=== PATIENT | female | born 1990 | race Caucasian/White ===

== ENCOUNTER → 2016-09-30 | Outpatient (CLI) | payer BC ==
[2016-09-30 10:31] LABS: CH 29.4; CHCM 33.2; HCT 38.9 % (34.0-46.0); HDW 2.37; HGB 12.7 gm/dL (11.4-16.0); MCH 29.1 pg (25.0-35.0); MCHC 32.7 g/dL (31.0-37.0); MCV 88.9 fL (80.0-100.0); Mean Platelet Volume 6.4; RBC 4.37 m/uL (3.80-5.40); RDW 13.6 % (11.5-15.5); WBC 9.2 k/uL (3.8-10.6)
[2016-09-30 11:00] LABS: Glucose 82 mg/dL (74-99); Non-African American GFR(MDRD) >60 (>60 ml/min/1.73 sqM)
[2016-09-30 11:26] LABS: Hepatitis B Surface Ag Index 0.08
[2016-10-02 12:05] LABS: HIV-1/HIV-2 Ab Screen NONREAC (NON REAC)
== END | disposition home or self-care (01) ==
LOC: LABWHC1 09:59
PROVIDERS: ATTEND Obstetrics & Gynecology
DX: Z34.01 Encounter for supervision of normal first pregnancy, first trimester (principal); R53.83 Other fatigue; Z3A.00 Weeks of gestation of pregnancy not specified
CPT/HCPCS: 36415; 82565; 82947; 85027; 86762; 86780; 86850; 86900; 86901; 87340; 87389

== ENCOUNTER → 2017-01-25 | Outpatient (CLI) | payer BC ==
[2017-01-25 09:16] LABS: CH 29.4; HCT 35.8 % (34.0-46.0); HDW 2.75; HGB 11.8 gm/dL (11.4-16.0); MCH 30.4 pg (25.0-35.0); MCHC 32.9 g/dL (31.0-37.0); MCV 92.4 fL (80.0-100.0); Mean Platelet Volume 7.2; RBC 3.87 m/uL (3.80-5.40); RDW 13.6 % (11.5-15.5); WBC 11.9 k/uL (3.8-10.6)
== END | disposition home or self-care (01) ==
LOC: LABWHC1 08:00
PROVIDERS: ATTEND Obstetrics & Gynecology
DX: Z34.02 Encounter for supervision of normal first pregnancy, second trimester (principal); Z3A.00 Weeks of gestation of pregnancy not specified
CPT/HCPCS: 36415; 82950; 85027

== ENCOUNTER 2017-04-12 10:26 | Outpatient (CLI) | payer BC ==
[2017-04-12 11:04] LABS: Appearance,Urine Cloudy (Clear); Bacteria,Urine Few /hpf; Bilirubin,Urine Negative (Negative); Blood,Urine Negative (Negative); Color,Urine Light Yellow; Glucose,Urine (UA) Negative (Negative); Ketones,Urine Negative (Negative); Leukocyte Esterase,Urine Moderate (Negative); Mucus,Urine Rare /hpf; Nitrite,Urine Negative (Negative); PH, Urine 7.5 (5.0-8.0); Protein,Urine Negative (Negative); Specific Gravity,Urine 1.008 (1.001-1.035); Squamous Epithelial Cell,Urine 13 /hpf (0-4); Urobilinogen,Urine <2.0 mg/dL (<2.0); WBC,Urine 16 /hpf (0-5)
[2017-04-12 11:08] LABS: Basophils % (A) 0 %; Eosinophils # (A) 0.3 k/uL (0-0.7); Eosinophils % (A) 3 %; HCT 33.5 % (34.0-46.0); Hypochromasia Moderate; Lymphocytes # (A) 2.4 k/uL (1.0-4.8); Lymphocytes % (A) 22 %; MCH 26.7 pg (25.0-35.0); MCHC 32.7 g/dL (31.0-37.0); MCV 81.6 fL (80.0-100.0); Monocytes # (A) 0.5 k/uL (0-1.0); Monocytes % (A) 4 %; Neutrophils # (A) 7.8 k/uL (1.3-7.7); Neutrophils % (A) 70 %; Platelet Count 238 k/uL (150-450); RDW 15.4 % (11.5-15.5); WBC 11.1 k/uL (3.8-10.6)
[2017-04-12 11:33] LABS: ALT 31 U/L (9-52); AST 19 U/L (14-36); Blood Urea Nitrogen 8 mg/dL (7-17); LDH 413 U/L (313-618); Uric Acid 5.2 mg/dL (3.7-7.4)
--- NOTE | 2017-06-24 07:17 | P.MSEPDOC ---
Presenting Problems - Arrival Data Date of Arrival on Unit: 04/12/17 Time of Arrival on Unit: 10:30 Mode of Transport: Ambulatory Medical History - Information : 1 Para: 0 Term: 0 : 0 Abortions: Spontaneous or Elective: 0 Number of Living Children: 0 - Gestational Age Gestational Age by MAGALI (wks/days): 36 Weeks and 5 Days Disposition - Disposition Discharge Date: 04/12/17 Discharge Time: 12:15 I agree with the RN Medical Screening Exam: No Risk & Benefit of care provided described in d/c instruction: No Diagnosis: Insufficient information. (Insufficient information is provided to complete this medical form.)
== END 2017-04-12 12:15 | disposition home or self-care (01) ==
LOC: FBPOP 10:26
PROVIDERS: ATTEND Obstetrics & Gynecology
DX: O13.9 Gestational [pregnancy-induced] hypertension without significant proteinuria, unspecified trimester (principal); Z3A.36 36 weeks gestation of pregnancy
CPT/HCPCS: 59025; 81001; 82565; 83615; 84450; 84460; 84520; 84550; 85025; 99215

== ENCOUNTER 2017-04-17 09:58 | Inpatient (IN) | payer BC ==
[2017-04-17 10:31] LABS: Appearance,Urine Cloudy (Clear); Bacteria,Urine Occasional /hpf; Bilirubin,Urine Negative (Negative); Glucose,Urine (UA) Negative (Negative); Ketones,Urine Negative (Negative); Leukocyte Esterase,Urine Moderate (Negative); Nitrite,Urine Negative (Negative); Particle Count 4092; Protein,Urine Negative (Negative); RBC,Urine 3 /hpf (0-5); Specific Gravity,Urine 1.003 (1.001-1.035); Squamous Epithelial Cell,Urine 5 /hpf (0-4); UA Billing (MACRO vs. MICRO) MICRO; Urobilinogen,Urine <2.0 mg/dL (<2.0); WBC,Urine 6 /hpf (0-5)
[2017-04-17 10:40] LABS: INR 0.9 (<1.2); Partial Thromboplastin Time 24.4 sec (22.0-30.0); Prothrombin Time 9.6 sec (9.0-12.0)
[2017-04-17 10:56] LABS: ALT 26 U/L (9-52); AST 27 U/L (14-36); LDH 509 U/L (313-618); Non-African American GFR(MDRD) >60 (>60 ml/min/1.73 sqM); Uric Acid 4.8 mg/dL (3.7-7.4)
[2017-04-17 10:59] LABS: Basophils % (A) 0 %; CH 26.1; CHCM 32.1; Eosinophils # (A) 0.1 k/uL (0-0.7); Eosinophils % (A) 1 %; HCT 36.1 % (34.0-46.0); HDW 3.17; HGB 11.5 gm/dL (11.4-16.0); Hypochromasia Slight; Luc # (Auto) 0.27; Luc % (Auto) 2; Lymphocytes # (A) 2.6 k/uL (1.0-4.8); Lymphocytes % (A) 23 %; MCH 25.9 pg (25.0-35.0); MCHC 31.7 g/dL (31.0-37.0); MCV 81.7 fL (80.0-100.0); Mean Platelet Volume 7.9; Monocytes # (A) 0.6 k/uL (0-1.0); Monocytes % (A) 5 %; Neutrophils # (A) 7.6 k/uL (1.3-7.7); Neutrophils % (A) 68 %; RBC 4.42 m/uL (3.80-5.40); RDW 14.4 % (11.5-15.5); WBC 11.3 k/uL (3.8-10.6); WBC (Perox) 11.54
[2017-04-17 12:01] VITALS: BMI 33.3
[2017-04-17] MEDS ORDERED: CITRIC ACID-SODIUM CITRATE 15 ML CUP PO ONE (12:44)
[2017-04-17] MEDS ORDERED: LACTATED RINGERS 1,000 ML IV ONE (12:44)
[2017-04-17] MEDS ORDERED: CLINDAMYCIN 900 MG in DEXTROSE 5% IN WATER 50 ML IVPB STA ×2 (12:46)
--- NOTE | 2017-04-17 12:53 | P.HPOB ---
History of Present Illness H&P Date: 04/17/17 Chief Complaint: Hypertension in This patient is a pleasant 26-year-old 1 para 0 female estimated date of confinement 05/05/2017 estimated gestational age 37-3/7 weeks who presented to my office today for surveillance of hypertension. Patient's is such that she's had done well until approximately last week when she started developing blood pressure 130/90 and today is 140/90. Patient does have a family history of preeclampsia. She did develop a headache today but she states it is mild. Repeat blood pressure here in labor and delivery shows a diastolic to be 97. Preeclampsia labs were normal but given the diagnosis of gestational hypertension after 37 weeks and recommended to proceed with delivery. She is also been complicated by known breech presentation and a closed cervix. She therefore is presenting for delivery by section. Review of Systems Constitutional: Reports as per HPI Cardiovascular: Denies chest pain, Denies shortness of breath Respiratory: Denies cough Gastrointestinal: Reports heartburn Genitourinary: Reports Menstruation: Reports amenorrhea Past Medical History Past Medical History: Asthma History of Any Multi-Drug Resistant Organisms: None Reported Past Surgical History: No Surgical Hx Reported Past Anesthesia/Blood Transfusion Reactions: No Reported Reaction Past Psychological History: No Psychological Hx Reported Smoking Status: Never smoker Past Alcohol Use History: None Reported Past Drug Use History: None Reported - Past Family History Sister(s) Family Medical History: Hypertension Medications and Allergies Home Medications Medication Instructions Recorded Confirmed Type Pnv,Calcium 72/Iron/Folic Acid 1 tab PO DAILY 04/17/17 04/17/17 History [ Plus Tablet] Allergies Allergy/AdvReac Type Severity Reaction Status Date / Time Penicillins Allergy Anaphylaxis Verified 04/12/17 10:40 dinoprostone [From Cervidil] AdvReac Unknown Verified 04/17/17 10:09 Exam - Vital Signs Vital signs: Vital Signs Temp Pulse Resp BP Pulse Ox 04/17/17 10:34 126/84 04/17/17 10:22 127/90 04/17/17 10:04 97.7 F 92 17 141/97 97 Intake and Output 04/16/17 04/17/17 04/17/17 22:59 06:59 14:59 Other: Weight 87.997 kg Patient Weight 04/18/17 06:59 Weight 87.997 kg - OBG Physical Exam Abdomen: bowel sounds normal, no diffuse tenderness, no bruit present, no guarding noted, no hepatomegaly, no splenomegaly, no mass Vulva: both: normal Vagina: normal moisture, no discharge Cervix: Cervix in the office was closed. Uterus: enlarged (Fundal height is 41 cm) Results blood work shows she is A positive, rubella immune, RPR nonreactive, HIV nonreactive, hepatitis B negative, Glucola was normal, group B strep was negative. Ultrasound at bedside shows a persistent breech presentation with normal amniotic fluid index Result Diagrams: 04/17/17 10:18 04/17/17 10:18 Abnormal Lab Results - Last 24 Hours (Table) 04/17/17 04/17/17 Range/Units 10:10 10:18 WBC 11.3 H (3.8-10.6) k/uL Urine Appearance Cloudy H (Clear) Ur Leukocyte Esterase Moderate H (Negative) Urine WBC 6 H (0-5) /hpf Ur Squamous Epith Cells 5 H (0-4) /hpf Urine Bacteria Occasional H (None) /hpf Assessment and Plan Assessment: This is a pleasant 26-year-old 1 para 0 female 37-3/7 weeks gestation who is admitted to labor and delivery for evaluation of hypertension. Patient is having persistent hypertension therefore recommended proceed with delivery at this time. Patient also has known breech presentation and therefore this will be done by section. I have discussed the surgery in detail with the patient and she understands the surgery as well as risks of infection, bleeding, possible injury bowel, bladder, vessels, and/or other organs. Patient understands risk of DVT and pulmonary embolism. All the patient's questions are answered and a written consent is obtained. Plan is primary low transverse section. (1) Gestational hypertension affecting first Current Visit: Yes Status: Acute Code(s): O13.9 - GESTATIONAL HTN W/O SIGNIFICANT PROTEINURIA, UNSP TRIMESTER SNOMED Code(s): 04405981 (2) Third trimester Current Visit: Yes Status: Acute Code(s): Z34.93 - ENCNTR FOR SUPRVSN OF NORMAL PREG, UNSP, THIRD TRIMESTER SNOMED Code(s): 08050355 (3) Breech presentation Current Visit: Yes Status: Acute Code(s): O32.1XX0 - MATERNAL CARE FOR BREECH PRESENTATION, UNSP SNOMED Code(s): 3962038
[2017-04-17] MEDS ORDERED: NALBUPHINE 10 MG/ML AMPUL ONE (16:49)
[2017-04-17] MEDS ORDERED: ONDANSETRON 4 MG/2 ML VIAL ONE (16:49)
[2017-04-17] MEDS ORDERED: OXYTOCIN 10 UNIT/ML 1 ML VIAL ONE (16:49)
[2017-04-17] MEDS ORDERED: KETOROLAC 30 MG/ML 1 ML VIAL ONE (16:49)
[2017-04-17] MEDS ORDERED: ePHEDrine SULFATE/0.9% NACL/PF 50 MG/5 ML SYRINGE IV ONE (16:49)
[2017-04-17] MEDS ORDERED: MORPHINE SULFATE (PF) 0.3 MG/0.3 ML SYR ONE (16:49)
[2017-04-17] MEDS ORDERED: METOCLOPRAMIDE 5 MG/ML 2 ML VIAL IVP PRN (17:30)
[2017-04-17] MEDS ORDERED: diphenhydrAMINE 50 MG/ML 1 ML VIAL IVP PRN ×2 (17:30→20:48)
[2017-04-17] MEDS ORDERED: diphenhydrAMINE 25 MG CAP PO PRN (17:30)
[2017-04-17] MEDS ORDERED: ONDANSETRON 4 MG/2 ML VIAL IVP PRN (17:30)
[2017-04-17] MEDS ORDERED: ZOLPIDEM 5 MG TAB PO PRN (17:30)
[2017-04-17] MEDS ORDERED: NALOXONE 0.4 MG/ML 1 ML VIAL IV PRN ×2 (17:30→20:48)
[2017-04-17] MEDS ORDERED: ACETAMINOPHEN TAB 325 MG TAB PO PRN (17:30)
[2017-04-17] MEDS ORDERED: SIMETHICONE 80 MG CHEWABLE PO PRN (17:30)
[2017-04-17] MEDS ORDERED: OXYTOCIN 20 UNITS/1000 ML NS 1,000 ML IV SCH (17:30)
[2017-04-17] MEDS ORDERED: Acetaminophen-Codeine 300-30mg TAB PO PRN ×2 (17:30)
[2017-04-17] MEDS ORDERED: LANOLIN CREAM 5 GM TUBE TOPICAL PRN (17:30)
--- NOTE | 2017-04-17 18:01 | P.OP ---
Date of Procedure: 04/17/17 Preoperative Diagnosis: #1: 37-3/7 week intrauterine . #2: Gestational hypertension. #3: Persistent breech presentation. Postoperative Diagnosis: #1: Same. #2: Nuchal cord 3. Procedure(s) Performed: Primary low transverse section. Anesthesia: spinal Surgeon: Kenneth Dodd Carry In Worker #1: eDnise Kendrick Estimated Blood Loss (ml): 800 Pathology: other (Placenta) Condition: stable Disposition: floor Indications for Procedure: Please see dictated H&P for intimate details of this patient's admission. Brief summary is a pleasant 26-year-old 1 para 0 female 37-3/7 weeks gestation admitted to labor and delivery from my office with hypertension. She continued to have hypertension here however preeclampsia evaluation was negative. Due to the patient being 37 weeks or greater I recommended proceed with delivery. Patient is known breech presentation and closed cervix and therefore we are proceeding with section for delivery. She understands this surgery and risks including risks of infection, bleeding, possible injury to bowel, bladder, vessels, and/or other organs. All the patient's questions are answered and a written consent is obtained. Operative Findings: This is a vigorous viable female Apgars 7 and 9 delivery time is 1701 hrs. was double footling breech sacrum posterior with a triple nuchal cord. Description of Procedure: This patient has a Arboleda catheter placed to straight drain. She is subsequently taken to the operating room where she sat up and spinal anesthetic is administered without incident. With an adequate level of anesthesia she has abdominal prep and drape. Scalpels then taken and a Pfannenstiel skin incision is then made. A second scalpel is taken down to the fascia the fascia scored with a knife. Fascial incision extended bilaterally using the Kumar scissors. Fascia is then dissected off the rectus muscles sharply. The rectus muscles are and the peritoneum identified and entered sharply. Peritoneal incision extended superior and inferior without difficulty. Bladder blade is then placed. Bladder peritoneum was then taken sharply off the lower uterine segment. Scalpels then taken a low transverse uterine incision is then made. Using a hemostat I enter the uterine cavity gently and there is loss of clear fluid. This incision is extended bluntly. The infant is found to be double footling breech sacrum posterior. Both feet are guided through the incision and using the usual breech maneuvers baby is delivered. This is a vigorous viable female Apgars are 7 and 9 and delivery time is 1701 hrs. Patient did have a triple nuchal cord which was loose and reduced. The umbilical cord was then doubly clamped and cut appears to be trivascular. The placenta is then manually extracted intact. Uterus is then externalized. Uterine incision is then demarcated with Carey clamps. Uterine incision closed using 0 Vicryl running locked fashion in 2 layers. Excellent hemostasis is noted. Bladder peritoneum was then reapproximated using a 3-0 Vicryl. Excess fluid is removed from the abdomen and pelvis. Uterus placed back into the abdomen. Parietal peritoneum was then closed using 0 Vicryl running fashion. Rectus muscles reapproximated in 0 Vicryl interrupted fashion. The fascia is then closed using 0 PDS in a running fashion. Fascial incision is intact and hemostatic. Subcutaneous tissues and closed using a 3-0 Vicryl. Skin is and closed using vashti. All counts are correct 3. There are no complications. Infant and mother are stable in delivery room.
[2017-04-17] MEDS: LACTATED RINGERS 1,000 ML IV SCH ×3 (18:41→22:11)
[2017-04-17] MEDS: SENNOSIDES-DOCUSATE SODIUM 1 EACH TAB PO SCH (19:47)
[2017-04-17] MEDS ORDERED: MORPHINE SULFATE 4 MG/ML SYRINGE IVP PRN (20:48)
[2017-04-18] MEDS: KETOROLAC 30 MG/ML 1 ML VIAL IVP PRN ×3 (02:27→18:04)
[2017-04-18] MEDS: LACTATED RINGERS 1,000 ML IV SCH ×3 (02:31→06:30)
[2017-04-18 05:37] LABS: Basophils # (A) 0.1 k/uL (0-0.2); Basophils % (A) 0 %; CH 25.3; CHCM 31.3; Eosinophils # (A) 0.1 k/uL (0-0.7); Eosinophils % (A) 1 %; HCT 32.4 % (34.0-46.0); HDW 2.92; HGB 10.3 gm/dL (11.4-16.0); Hypochromasia Moderate; Luc # (Auto) 0.11; Luc % (Auto) 1; Lymphocytes # (A) 2.7 k/uL (1.0-4.8); Lymphocytes % (A) 19 %; MCH 25.8 pg (25.0-35.0); MCHC 31.8 g/dL (31.0-37.0); MCV 81.2 fL (80.0-100.0); Monocytes # (A) 0.7 k/uL (0-1.0); Monocytes % (A) 5 %; Neutrophils # (A) 10.5 k/uL (1.3-7.7); Neutrophils % (A) 74 %; RBC 3.99 m/uL (3.80-5.40); RDW 15.7 % (11.5-15.5); WBC 14.2 k/uL (3.8-10.6); WBC (Perox) 14.59
--- NOTE | 2017-04-18 06:02 | P.PNOBGPC ---
Subjective - Subjective Patient reports: Reports appetite normal, Reports voiding normally, Reports pain well controlled, Reports ambulating normally [place]: doing well Objective - Vital Signs Latest vital signs: Vital Signs Temp Pulse Resp BP Pulse Ox 04/18/17 05:55 18 98 04/18/17 04:54 16 97 04/18/17 04:20 98.3 F 71 16 142/79 04/18/17 03:00 16 98 04/18/17 01:00 16 97 04/17/17 23:28 98.0 F 69 16 117/77 98 04/17/17 23:00 16 98 04/17/17 22:00 16 04/17/17 20:48 16 04/17/17 19:26 97.9 F 73 16 136/89 04/17/17 18:56 82 16 134/89 98 04/17/17 18:26 97.7 F 67 16 130/77 98 04/17/17 18:11 73 16 124/73 99 04/17/17 17:56 64 16 112/66 98 04/17/17 17:41 79 16 100/66 99 04/17/17 17:26 97.8 F 75 16 102/64 97 04/17/17 10:34 126/84 04/17/17 10:22 127/90 04/17/17 10:04 97.7 F 92 17 141/97 97 Intake and Output 04/17/17 04/17/17 04/18/17 14:59 22:59 06:59 Intake Total 1000 Output Total 200 400 Balance 800 -400 Intake: Intake, IV Titration 1000 Amount Lactated Ringers 1,000 ml 1000 @ 125 mls/hr IV .Q8H [facility] Rx#:[id number] Output: Urine 200 400 Uretheral (Arboleda) 300 Other: # Voids 1 Weight 87.997 kg Patient Weight 04/18/17 06:59 Weight 87.997 kg - Exam Lungs: bilateral: normal Chest: Normal S1, Normal S2 Extremities: Present: normal Abdomen: Present: normal appearance, soft. Absent: distention, tenderness Incision: Present: normal, dry, intact Uterus: Present: normal, firm - Labs Labs: Abnormal Lab Results - Last 24 Hours (Table) 04/17/17 04/17/17 04/18/17 Range/Units 10:10 10:18 05:23 WBC 11.3 H 14.2 H (3.8-10.6) k/uL Hgb 10.3 L (11.4-16.0) gm/dL Hct 32.4 L (34.0-46.0) % RDW 15.7 H (11.5-15.5) % Neutrophils # 10.5 H (1.3-7.7) k/uL Urine Appearance Cloudy H (Clear) Ur Leukocyte Esterase Moderate H (Negative) Urine WBC 6 H (0-5) /hpf Ur Squamous Epith Cells 5 H (0-4) /hpf Urine Bacteria Occasional H (None) /hpf Assessment and Plan Assessment: Postoperative day #1. Patient is resting without complaints. Vital signs are stable she is afebrile. Uterus is firm nontender and her incision is intact and dry. Hemoglobin today is 10.3. Plan today is to encourage patient ambulate , allow the patient to shower, advanced her diet, continue routine postoperative care. (1) Gestational hypertension affecting first Current Visit: Yes Status: Acute Code(s): O13.9 - GESTATIONAL HTN W/O SIGNIFICANT PROTEINURIA, UNSP TRIMESTER SNOMED Code(s): 34214090 (2) Third trimester Current Visit: Yes Status: Acute Code(s): Z34.93 - ENCNTR FOR SUPRVSN OF NORMAL PREG, UNSP, THIRD TRIMESTER SNOMED Code(s): 43263217 (3) Breech presentation Current Visit: Yes Status: Acute Code(s): O32.1XX0 - MATERNAL CARE FOR BREECH PRESENTATION, UNSP SNOMED Code(s): 6881677
[2017-04-18] MEDS: SENNOSIDES-DOCUSATE SODIUM 1 EACH TAB PO SCH ×2 (08:00→21:52)
--- NOTE | 2017-04-18 08:33 | P.PN ---
Progress Note - Text Date: 04/18/2017 Time: 708 The patient is status post section Vital signs stable VAS: 0-10 Patient has no complaints of pain. The patient incurred some minimal itching yesterday, this itching is now subsiding. Pain meds to be managed by service.
[2017-04-18 16:42] VITALS: RESP 16
[2017-04-18 23:08] VITALS: PULSE 71
[2017-04-19] MEDS: IBUPROFEN 600 MG TAB PO PRN ×2 (01:02→06:50)
--- NOTE | 2017-04-19 06:29 | P.PNOBGPC ---
Subjective - Subjective Patient reports: Reports appetite normal, Reports voiding normally, Reports pain well controlled, Reports ambulating normally : doing well Objective - Vital Signs Latest vital signs: Vital Signs Temp Pulse Resp BP Pulse Ox 04/19/17 06:00 16 04/19/17 05:00 16 04/19/17 03:00 16 04/19/17 01:00 16 04/18/17 23:11 98.7 F 71 16 135/72 99 04/18/17 23:00 98.7 F 71 16 135/72 04/18/17 21:00 16 04/18/17 19:00 16 04/18/17 17:00 16 98 04/18/17 16:00 98.1 F 67 16 135/83 04/18/17 14:42 18 04/18/17 13:00 18 04/18/17 11:16 97.8 F 65 16 114/71 04/18/17 11:00 18 04/18/17 09:00 16 04/18/17 08:00 98 F 66 16 122/68 Intake and Output 04/18/17 04/18/17 04/19/17 14:59 22:59 06:59 Output Total 1100 Balance -1100 Output: Urine 1100 Other: # Voids 1 - Exam Lungs: bilateral: normal Chest: Normal S1, Normal S2 Extremities: Present: normal Abdomen: Present: normal appearance, soft. Absent: distention, tenderness Incision: Present: normal, dry, intact Uterus: Present: normal, firm Assessment and Plan Assessment: Postoperative day #2. Patient is resting without complaints and wishes to go home. Vital signs are stable and she is afebrile. Uterus is firm nontender and her incision is intact and dry. Impression this is a normal postoperative course. Patient appears to be stable for discharge home so we'll continue routine care today and discharge home later. (1) Gestational hypertension affecting first Current Visit: Yes Status: Acute Code(s): O13.9 - GESTATIONAL HTN W/O SIGNIFICANT PROTEINURIA, UNSP TRIMESTER SNOMED Code(s): 34390149 (2) Third trimester Current Visit: Yes Status: Acute Code(s): Z34.93 - ENCNTR FOR SUPRVSN OF NORMAL PREG, UNSP, THIRD TRIMESTER SNOMED Code(s): 85783632 (3) Breech presentation Current Visit: Yes Status: Acute Code(s): O32.1XX0 - MATERNAL CARE FOR BREECH PRESENTATION, UNSP SNOMED Code(s): 1752927
--- NOTE | 2017-04-19 06:33 | P.DS ---
Providers Date of admission: 04/17/17 10:56 Expected date of discharge: 04/19/17 Attending physician: Kenneth Dodd Primary care physician: Stated None - Discharge Diagnosis(es) (1) Gestational hypertension affecting first Current Visit: Yes Status: Acute (2) Third trimester Current Visit: Yes Status: Acute (3) Breech presentation Current Visit: Yes Status: Acute Hospital Course: Please see dictated H&P for intimate details of this patient's admission. Brief summary is a pleasant 26-year-old 1 para 0 female 37-3/7 weeks gestation admitted to labor and delivery for delivery secondary to gestational hypertension. Patient also has known breech presentation therefore underwent a primary low transverse section for viable female . Please see dictated operative note. Postoperative day #2 patient's felt be stable for discharge home follow up with me in 1 week for an incision check. Procedures: Primary low transverse section Patient Condition at Discharge: Good Plan - Discharge Summary New Discharge Prescriptions: New Acetaminophen-Codeine 300-30mg [Tylenol w/codeine #3] 1 - 2 each PO Q4HR PRN #30 tab PRN Reason: Mild Pain Ibuprofen [Motrin] 600 mg PO Q6HR PRN #40 tab PRN Reason: Mild Pain Or Fever >= 100.5 No Action Pnv,Calcium 72/Iron/Folic Acid [ Plus Tablet] 1 tab PO DAILY Discharge Medication List Pnv,Calcium 72/Iron/Folic Acid [ Plus Tablet] 1 tab PO DAILY 04/17/17 [ History] Acetaminophen-Codeine 300-30mg [Tylenol w/codeine #3] 1 - 2 each PO Q4HR PRN # 30 tab 04/19/17 [Rx] Ibuprofen [Motrin] 600 mg PO Q6HR PRN #40 tab 04/19/17 [Rx] Follow up Appointment(s)/Referral(s): Kenneth Dodd MD [STAFF PHYSICIAN] - 04/26/17 8:30 am (Patient also has a visit on May 30 and 11:30 AM) Patient Instructions/Handouts: (DC) Activity/Diet/Wound Care/Special Instructions: No strenuous activity or heavy lifting for 6 weeks. No intercourse for 6 weeks. Please call if any fever, chills, excessive vaginal bleeding, and/or abdominal pain. Discharge Disposition: HOME SELF-CARE
[2017-04-19] MEDS: SENNOSIDES-DOCUSATE SODIUM 1 EACH TAB PO SCH (07:34)
[2017-04-19 12:59] VITALS: BP 125/71; TEMP 97.7
== END 2017-04-19 12:40 | disposition home or self-care (01) | DRG 766 ==
LOC: FBPOP 09:58 → 4FBP 10:56
PROVIDERS: ADMIT Obstetrics & Gynecology; ATTEND Obstetrics & Gynecology
PROC: 10D00Z1 Extraction of Products of Conception, Low, Open Approach (ICD-10-PCS; principal; 2017-04-17 17:00)
DX: O13.4 Gestational [pregnancy-induced] hypertension without significant proteinuria, complicating childbirth (principal); O32.8XX0 Maternal care for other malpresentation of fetus, not applicable or unspecified; Z37.0 Single live birth; Z88.0 Allergy status to penicillin; O69.81X0 Labor and delivery complicated by cord around neck, without compression, not applicable or unspecified; Z3A.37 37 weeks gestation of pregnancy
CPT/HCPCS: 81001; 82565; 83615; 84450; 84460; 84550; 85025; 85610; 85730; 86850; 86900; 86901; 88307; 94760

== ENCOUNTER 2020-04-21 09:26 | Inpatient (IN) | payer BC ==
[2020-04-21 10:21] LABS: Appearance,Urine Clear (Clear); Bacteria,Urine Few /hpf; Bilirubin,Urine Negative (Negative); Blood,Urine Negative (Negative); Color,Urine Light Yellow; Glucose,Urine (UA) Negative (Negative); Ketones,Urine Negative (Negative); Leukocyte Esterase,Urine Moderate (Negative); Nitrite,Urine Negative (Negative); PH, Urine 6.5 (5.0-8.0); Protein,Urine Negative (Negative); Specific Gravity,Urine 1.005 (1.001-1.035); Squamous Epithelial Cell,Urine 3 /hpf (0-4); Urobilinogen,Urine <2.0 mg/dL (<2.0); WBC,Urine 2 /hpf (0-5)
[2020-04-21 10:35] LABS: Creatinine,Urine Random 27.3 mg/dL; Protein/Creatinine Ratio,Urine 0.44
[2020-04-21 11:04] LABS: Basophils % (A) 0 %; Eosinophils # (A) 0.2 k/uL (0-0.7); Eosinophils % (A) 2 %; HCT 37.9 % (34.0-46.0); HGB 12.1 gm/dL (11.4-16.0); Hypochromasia Slight; Lymphocytes % (A) 17 %; MCH 26.8 pg (25.0-35.0); MCHC 31.9 g/dL (31.0-37.0); MCV 83.8 fL (80.0-100.0); Mean Platelet Volume 7.9; Monocytes # (A) 0.5 k/uL (0-1.0); Monocytes % (A) 5 %; Neutrophils # (A) 8.8 k/uL (1.3-7.7); Neutrophils % (A) 74 %; Platelet Count 256 k/uL (150-450); RBC 4.52 m/uL (3.80-5.40); RDW 14.1 % (11.5-15.5); WBC 11.9 k/uL (3.8-10.6)
[2020-04-21 11:11] LABS: ALT 16 U/L (4-34); AST 28 U/L (14-36); African American GFR (CKD) >90 (>60 ml/min/1.73 sqM); Blood Urea Nitrogen 12 mg/dL (7-17); LDH 524 U/L (313-618); Non-African American GFR(CKD) >90 (>60 ml/min/1.73 sqM); Uric Acid 4.8 mg/dL (3.7-7.4)
[2020-04-21 13:35] LABS: INR 0.9 (<1.2); Prothrombin Time 9.4 sec (9.0-12.0)
--- NOTE | 2020-04-21 17:59 | P.HPOB ---
History of Present Illness H&P Date: 04/21/20 Chief Complaint: Gestational hypertension This patient is a pleasant 29-year-old 2 para 1 female estimated date of confinement 05/13/2020 estimated gestational age 36-6/7 weeks who presented to my office today for routine office visit was noted to have elevated blood pressure 142/86. Patient's history is such that she had gestational hypertension at 37 weeks last that required delivery I section for breech presentation. Patient's been on a baby aspirin this and sat close surveillance however did have an elevated blood pressure a slight headache this morning. Patient subsequently sent to labor and delivery for evaluation and evaluation here shows another elevated blood pressure above's criteria and elevated protein to creatinine ratio. I discussed with the patient management including expectant management with close observation versus delivery and she and I have decided to proceed with delivery at this time. Patient's ce rvix is not dilated she's had a previous section therefore plan will be to proceed with repeat section tomorrow morning at 37 weeks. Patient's care has otherwise uncomplicated. Review of Systems Genitourinary: Reports Menstruation: Reports amenorrhea Past Medical History Past Medical History: Asthma History of Any Multi-Drug Resistant Organisms: None Reported Past Surgical History: Section Past Anesthesia/Blood Transfusion Reactions: No Reported Reaction Past Psychological History: No Psychological Hx Reported Smoking Status: Former smoker Past Alcohol Use History: None Reported Past Drug Use History: None Reported - Past Family History Sister(s) Family Medical History: Hypertension Medications and Allergies Home Medications Medication Instructions Recorded Confirmed Type Pnv,Calcium 72/Iron/Folic Acid 1 tab PO DAILY 04/17/17 04/21/20 History [ Plus Tablet] Allergies Allergy/AdvReac Type Severity Reaction Status Date / Time Penicillins Allergy Anaphylaxis Verified 04/21/20 09:42 dinoprostone [From Cervidil] AdvReac Unknown Verified 04/21/20 09:42 Exam Vital Signs Temp Pulse Resp BP Pulse Ox 04/21/20 16:03 98.3 F 96 16 108/67 97 04/21/20 14:44 97.3 F L 101 H 16 120/79 97 04/21/20 14:36 97.3 F L 16 120/79 97 Intake and Output 04/21/20 04/21/20 04/21/20 06:59 14:59 22:59 Other: # Voids 1 Weight 92.079 kg - OBG Physical Exam Abdomen: bowel sounds normal Vulva: both: normal Vagina: normal moisture, no discharge Cervix: Cervix is closed and thick Cervix: no lesion, no discharge Uterus: enlarged Results blood work shows she is A positive, rubella immune, RPR is nonreactive, hepatitis B is negative, HIV is nonreactive, group B strep was negative, Glucola was abnormal with a normal three-hour gtt., most recent ultrasound with estimated weight in approximately 5 lbs. 2 oz. Result Diagrams: 04/21/20 10:50 04/21/20 10:50 Abnormal Lab Results - Last 24 Hours (Table) 04/21/20 04/21/20 Range/Units 09:30 10:50 WBC 11.9 H (3.8-10.6) k/uL Neutrophils # 8.8 H (1.3-7.7) k/uL Ur Leukocyte Esterase Moderate H (Negative) Urine Bacteria Few H (None) /hpf Assessment and Plan Assessment: This is a pleasant 29-year-old 2 para 1 female 36-6/7 weeks gestation with to elevated blood pressures and an elevated protein creatinine ratio with a mild headache, all consistent with gestational hypertension per criteria. I discussed management with the patient and her and offered close surveillance versus delivery and we have elected to proceed with delivery at this time. heart tones are category 1 therefore we will admit her to the hospital proceed with repeat section the morning due to an unfavorable cervix, and previous section. I've discussed this all in detail with the patient and including risks of surgery and risks of infant needing special care. All questions been answered. (1) 37 weeks gestation of Current Visit: Yes Status: Acute Code(s): Z3A.37 - 37 WEEKS GESTATION OF SNOMED Code(s): 54164719 (2) Gestational hypertension Current Visit: Yes Status: Acute Code(s): O13.9 - GESTATIONAL HTN W/O SIGNIFICANT PROTEINURIA, UNSP TRIMESTER SNOMED Code(s): 234809359 (3) Previous delivery affecting Current Visit: Yes Status: Acute Code(s): O34.219 - MATERNAL CARE FOR UNSP TYPE SCAR FROM PREVIOUS DEL SNOMED Code(s): 571743859
[2020-04-22] MEDS ORDERED: LACTATED RINGERS 1,000 ML IV SCH (05:06)
[2020-04-22] MEDS ORDERED: LACTATED RINGERS 1,000 ML IV ONE (05:06)
[2020-04-22] MEDS ORDERED: CITRIC ACID-SODIUM CITRATE 15 ML CUP PO ONE (05:06)
[2020-04-22] MEDS ORDERED: CLINDAMYCIN 900 MG in DEXTROSE 5% IN WATER 50 ML IVPB ONE ×2 (07:15)
[2020-04-22] MEDS ORDERED: GENTAMICIN 360 MG in SODIUM CHLORIDE 0.9% 100 ML IVPB ONE (07:15)
[2020-04-22] MEDS ORDERED: OXYTOCIN 10 UNIT/ML 1 ML VIAL ONE (07:44)
[2020-04-22] MEDS ORDERED: MORPHINE SULFATE (PF) 0.3 MG/0.3 ML SYR ONE (07:44)
[2020-04-22] MEDS ORDERED: KETOROLAC 15 MG/ML 1 ML VIAL ONE (07:44)
[2020-04-22] MEDS ORDERED: ONDANSETRON 4 MG/2 ML VIAL ONE (07:44)
[2020-04-22] MEDS ORDERED: ePHEDrine SULFATE/0.9% NACL/PF 50 MG/5 ML SYRINGE IV ONE (07:44)
[2020-04-22] MEDS ORDERED: NALBUPHINE 10 MG/ML (1 ML AMP) ONE (07:44)
[2020-04-22] MEDS ORDERED: NALOXONE 0.4 MG/ML 1 ML VIAL IV PRN (08:32)
[2020-04-22] MEDS ORDERED: METOCLOPRAMIDE 5 MG/ML 2 ML VIAL IVP PRN (08:32)
[2020-04-22] MEDS ORDERED: SIMETHICONE 80 MG CHEWABLE PO PRN (08:32)
[2020-04-22] MEDS ORDERED: ACETAMINOPHEN TAB 325 MG TAB PO PRN (08:32)
[2020-04-22] MEDS ORDERED: HYDROcodone/APAP 5-325MG 1 EACH TAB PO PRN (08:32)
[2020-04-22] MEDS ORDERED: LANOLIN CREAM 5 GM TUBE TOPICAL PRN (08:32)
[2020-04-22] MEDS ORDERED: ZOLPIDEM 5 MG TAB PO PRN (08:32)
[2020-04-22] MEDS ORDERED: diphenhydrAMINE 50 MG/ML 1 ML VIAL IVP PRN (08:32)
[2020-04-22] MEDS ORDERED: ONDANSETRON 4 MG/2 ML VIAL IVP PRN (08:32)
[2020-04-22] MEDS ORDERED: diphenhydrAMINE 25 MG CAP PO PRN (08:32)
[2020-04-22] MEDS ORDERED: OXYTOCIN 20 UNITS/1000 ML NS 1,000 ML IV SCH (08:32)
--- NOTE | 2020-04-22 08:38 | P.OP ---
Date of Procedure: 04/22/20 Preoperative Diagnosis: #1: 37 0/7 weeks . #2: Gestational HTN #3: Previous C/S, desires repeat Postoperative Diagnosis: Same Procedure(s) Performed: Repeat low transverse section Anesthesia: spinal Surgeon: Kenneth Dodd Compensator #1: Denis Wick Estimated Blood Loss (ml): 800 Pathology: other (Sent to) Condition: stable Disposition: floor Indications for Procedure: Please see dictated H&P for intimate details of this patient's admission. Brief summary is a pleasant 29-year-old 2 para 1 female 37-0/7 weeks gestation admitted for evaluation of hypertension. Per criteria patient is diagnosed with gestational hypertension and recommendations are to proceed with delivery. Patient's had a previous section unfavorable cervix and therefore we will chosen to do a repeat section. Patient understands this surgery and risks and risks of infection, bleeding, possible injury to bowel, bladder, vessels, and/or other organs. All the patient's questions are answered written consent is obtained. Operative Findings: This is a vigorous viable male infant Apgars 7 and 9 delivery time is 0803 hrs. Description of Procedure: This patient has a Arboleda catheter placed to straight drain. She subsequently taken to the operating room where she sat up and spinal anesthetic is administered without incident. With adequate level of anesthesia she has abdo aimee prep and drape. Scalpels and taken the previous Pfannenstiel incision is incised. A second scalpel is taken down the fascia the fascia scored with a knife. She'll incision extended bilaterally using the Kumar scissors. Fascia is then dissected off the rectus muscles sharply. Rectus muscles are and the peritoneum identified and entered sharply. Peritoneal incision extended superior and inferiorly without difficulty. Bladder blade is then placed. Bladder is off the lower uterine segment, therefore scalpels taken low transverse uterine incision is made. Using a hemostat I into the uterine cavity bluntly and there is loss of clear fluid. The 's head is then guided through the incision with fundal pressure. Mouth and nares are bulb suctioned. There is no evidence of a nuchal cord. Gentle pressure we then deliver the rest this infant's body. Is a vigorous viable male infant Apgars are 7 and 9 delivery time was 0803 hrs. After delivery of the infant the umbilical cord is doubly clamped and cut appears to be trivascular. The placenta is then manually extracted intact. Uterus is externalized uterine incision demarcated with Carey clamps and closed using 2 layers of 0 Vicryl suture. Excess fluid is removed from the abdomen and pelvis. Uterus tubes and ovaries appear normal for term gestation. Ears placed back in the abdomen. Parietal peritoneum was then identified and closed using 0 Vicryl running fashion. Rectus muscles reapproximated Vicryl interrupted fashion. Fascial incision is then closed using 0 PDS. Subcutaneous tissues and closed using a 3-0 Vicryl. Skin is and closed using vashti. All counts correct 3. There are no complications. and mother are taken together birthing suite in satisfactory condition.
[2020-04-22] MEDS: SENNOSIDES-DOCUSATE SODIUM 1 EACH TAB PO SCH ×2 (08:57→19:46)
[2020-04-22] MEDS: LACTATED RINGERS 1,000 ML IV SCH ×2 (08:57→13:00)
--- NOTE | 2020-04-22 18:44 | P.MSEPDOC ---
Presenting Problems - Arrival Data Date of Arrival on Unit: 04/21/20 Time of Arrival on Unit: 12:30 Mode of Transport: Bed - Complaint OB-Reason for Admission/Chief Complaint: PIH, Observation/Evaluation Comment: Patient sent from [place] with orders for PIH workup. Medical History - Information : 2 Para: 1 Term: 1 : 0 Abortions: Spontaneous or Elective: 0 Number of Living Children: 1 - Gestational Age Gestational Age by MAGALI (wks/days): 38 Weeks and 3 Days Review of Systems - Review of Systems Constitutional: No problems Breast: No problems ENT: No problems Cardiovascular: No problems Respiratory: No problems Gastrointestinal: No problems Genitourinary: No problems Musculoskeletal: No problems Neurological: No problems Skin: No problems Vital Signs - Temperature Temperature: 98.0 F Temperature Source: Oral - Pulse Right Brachial Pulse Rate: 78 Pulse Assessment Method: Automatic Cuff - Respirations Respiratory Rate: 16 Oxygen Delivery Method: Room Air O2 Sat by Pulse Oximetry: 96 - Blood Pressure Right Arm Blood Pressure: 113/58 Blood Pressure Mean: 76 Blood Pressure Source: Automatic Cuff Physician Notification (Pre) - Notification Comment Comment: patient sent with script Disposition - Disposition OB Disposition: Observe, Triage I agree with the RN Medical Screening Exam: Yes Risk & Benefit of care provided described in d/c instruction: Yes Diagnosis: GESTATIONAL HTN W/O SIGNIFICANT PROTEINURIA, THIRD TRIMESTER (Patient is being admitted for delivery)
[2020-04-22] MEDS: KETOROLAC 15 MG/ML 1 ML VIAL IVP PRN (23:17)
[2020-04-23] MEDS: KETOROLAC 15 MG/ML 1 ML VIAL IVP PRN (06:55)
--- NOTE | 2020-04-23 06:56 | P.PN ---
Progress Note - Text Progress Note Date: 04/23/20 Postoperative day 1 status post section under spinal anesthesia, and i ntrathecal morphine given for postoperative analgesia, patient doing well, there is no anesthesia related complications, Patient had no headache, vital signs stable , Assessment and plan= postop day 1 status post , doing well there is no anesthesia related complication.
--- NOTE | 2020-04-23 07:18 | P.PNOBGPC ---
Subjective - Subjective Patient reports: Reports appetite normal, Reports voiding normally, Reports pain well controlled, Reports ambulating normally : doing well Objective - Vital Signs Latest vital signs: Vital Signs Temp Pulse Resp BP Pulse Ox 04/23/20 03:59 98.4 F 83 16 108/68 97 04/22/20 23:31 98.2 F 73 18 112/64 96 04/22/20 20:00 97.7 F 78 18 114/72 96 04/22/20 18:44 98.0 F 78 16 113/58 96 04/22/20 16:00 98.0 F 78 16 113/58 96 04/22/20 12:00 98.6 F 75 16 112/57 96 04/22/20 10:30 98.9 F 68 18 113/65 98 04/22/20 10:00 85 116/66 04/22/20 09:30 97.0 F L 86 18 117/66 98 04/22/20 09:15 82 18 123/75 98 04/22/20 09:00 98.5 F 83 18 119/71 96 04/22/20 08:45 98.2 F 80 18 117/70 98 04/22/20 08:30 98.6 F 75 18 132/60 98 Intake and Output 04/22/20 04/23/20 04/23/20 22:59 06:59 14:59 Output Total 525 Balance -525 Output: Urine 525 Other: # Voids 1 - Exam Lungs: bilateral: normal Chest: Normal S1, Normal S2 Extremities: Present: normal Abdomen: Present: normal appearance, soft. Absent: distention, tenderness Incision: Present: normal, dry, intact Uterus: Present: normal, firm Assessment and Plan Assessment: Postoperative day #1. Patient is resting without complaints. Blood pressures are excellent. She is on no antihypertensives. Incision is intact and dry. Patient is tolerating regular diet. CBC is pending at time of this dictation. My impression this is a normal post operative course. Plan is to check a CBC, encourage ambulation, advance diet, and continue routine postoperative care. Patient most likely will want to go home tomorrow. (1) 37 weeks gestation of Current Visit: Yes Status: Acute Code(s): Z3A.37 - 37 WEEKS GESTATION OF SNOMED Code(s): 16044220 (2) Gestational hypertension Current Visit: Yes Status: Acute Code(s): O13.9 - GESTATIONAL HTN W/O SIGNIFICANT PROTEINURIA, UNSP TRIMESTER SNOMED Code(s): 842375103 (3) Previous delivery affecting Current Visit: Yes Status: Acute Code(s): O34.219 - MATERNAL CARE FOR UNSP TYPE SCAR FROM PREVIOUS DEL SNOMED Code(s): 402165494
[2020-04-23 07:19] LABS: Basophils % (A) 0 %; Eosinophils # (A) 0.3 k/uL (0-0.7); Eosinophils % (A) 2 %; HCT 34.6 % (34.0-46.0); HGB 11.3 gm/dL (11.4-16.0); Lymphocytes # (A) 1.9 k/uL (1.0-4.8); Lymphocytes % (A) 13 %; MCH 27.1 pg (25.0-35.0); MCHC 32.8 g/dL (31.0-37.0); MCV 82.8 fL (80.0-100.0); Mean Platelet Volume 7.9; Monocytes # (A) 0.8 k/uL (0-1.0); Monocytes % (A) 6 %; Neutrophils # (A) 11.1 k/uL (1.3-7.7); Neutrophils % (A) 77 %; Platelet Count 216 k/uL (150-450); RBC 4.17 m/uL (3.80-5.40); RDW 14.4 % (11.5-15.5); WBC 14.3 k/uL (3.8-10.6)
[2020-04-23] MEDS: SENNOSIDES-DOCUSATE SODIUM 1 EACH TAB PO SCH ×2 (09:20→19:45)
[2020-04-23] MEDS: IBUPROFEN 600 MG TAB PO PRN ×2 (11:07→18:03)
[2020-04-24] MEDS: IBUPROFEN 600 MG TAB PO PRN ×2 (06:04)
[2020-04-24] MEDS: SENNOSIDES-DOCUSATE SODIUM 1 EACH TAB PO SCH (07:40)
[2020-04-24 07:57] VITALS: BP 127/80; PULSE 70; RESP 16; TEMP 98.2
--- NOTE | 2020-04-24 08:26 | P.DS ---
Providers Date of admission: 04/21/20 12:39 Expected date of discharge: 04/24/20 Attending physician: Kenneth Dodd Primary care physician: Stated None Hospital Course: This is a 29-year-old female 2 para 1 at 37 weeks who presented with gestational hypertension. She underwent a repeat section on 04/22/2020 and delivered a viable male infant with infant weight of 5 lbs. 9 oz. Her course has been uncomplicated. Lochia is decreasing. Her pain is well-controlled. Vital signs are stable with blood pressures in the normal range. Abdomen is soft with positive bowel sounds 4. Incision is clean dry and intact with vashti in place. Extremities show negative Homans. Impression is status post repeat section postoperative day #2. Plan is to discharge home today. Routine postoperative and instructions are given. She is advised to follow up in the office in [address] Dodd. She is advised to call the office if she has any further questions or concerns prior to her appointment time. Procedures: Repeat low transverse section on 04/22/2020 Patient Condition at Discharge: Stable Plan - Discharge Summary New Discharge Prescriptions: New Ibuprofen [Motrin] 600 mg PO Q6HR PRN #40 tab PRN Reason: Mild Pain Or Fever >= 100.5 HYDROcodone/APAP 5-325MG [[place] 5-325] 1 each PO Q4HR PRN #18 tab PRN Reason: Moderate Pain No Action Pnv,Calcium 72/Iron/Folic Acid [ Plus Tablet] 1 tab PO DAILY Discharge Medication List Pnv,Calcium 72/Iron/Folic Acid [ Plus Tablet] 1 tab PO DAILY 04/17/17 [History] HYDROcodone/APAP 5-325MG [[place] 5-325] 1 each PO Q4HR PRN #18 tab 04/23/20 [Rx] Ibuprofen [Motrin] 600 mg PO Q6HR PRN #40 tab 04/23/20 [Rx] Follow up Appointment(s)/Referral(s): Kenneth Dodd MD [STAFF PHYSICIAN] - 05/01/20 8:30 am (Patient also has a appointment on June 04 at 10:45 AM.) Patient Instructions/Handouts: (DC) Activity/Diet/Wound Care/Special Instructions: No heavy lifting or strenuous activity for 6 weeks. No intercourse or anything per vagina for 6 weeks. Please call if any fever, chills, excessive vaginal bleeding, and/or abdominal pain. Discharge Disposition: HOME SELF-CARE
== END 2020-04-24 10:00 | disposition home or self-care (01) | DRG 788 ==
LOC: FBPOP 09:26 → 4FBP 12:39
PROVIDERS: ADMIT Obstetrics & Gynecology; ATTEND Obstetrics & Gynecology
PROC: 10D00Z1 Extraction of Products of Conception, Low, Open Approach (ICD-10-PCS; principal; 2020-04-21)
DX: O13.4 Gestational [pregnancy-induced] hypertension without significant proteinuria, complicating childbirth (principal); O34.211 Maternal care for low transverse scar from previous cesarean delivery; Z37.0 Single live birth; Z3A.37 37 weeks gestation of pregnancy; Z87.891 Personal history of nicotine dependence; Z87.09 Personal history of other diseases of the respiratory system; Z88.0 Allergy status to penicillin; Z88.8 Allergy status to other drugs, medicaments and biological substances; Z82.49 Family history of ischemic heart disease and other diseases of the circulatory system
CPT/HCPCS: 59025; 81001; 82565; 82570; 83615; 84156; 84450; 84460; 84520; 84550; 85025; 85610; 85730; 86850; 86900; 86901

== ENCOUNTER → 2022-05-25 | Outpatient (CLI) | payer BC ==
[2022-05-25 14:41] LABS: HCT 33.6 % (37.2-46.3); HGB 10.4 g/dL (12.0-15.0); MCH 27.6 pg (27.0-32.0); MCV 89.1 fL (80.0-97.0); Mean Platelet Volume 9.8 fL (9.5-12.2); NRBC Per 100 WBC 0 /100 WBCS (0.0-0.0); Platelet Count 301 X 10*3/uL (140-440); RBC 3.77 X 10*6/uL (4.10-5.20); RDW 12.8 % (11.5-14.5); WBC 10.01 X 10*3/uL (4.50-10.00)
== END | disposition home or self-care (01) ==
LOC: LABWHC1 09:04
PROVIDERS: ATTEND Obstetrics & Gynecology
DX: Z34.82 Encounter for supervision of other normal pregnancy, second trimester (principal); Z3A.00 Weeks of gestation of pregnancy not specified
CPT/HCPCS: 36415; 82950; 85027